=== PATIENT | female | born 1955 | race Asian ===

== ENCOUNTER → 2016-09-29 | Outpatient (CLI) | payer OTHER | END | disposition home or self-care (01) | LOC: RADPV 10:14 | PROVIDERS: ATTEND Family Medicine | DX: M47.892 Other spondylosis, cervical region (principal); M12.88 Other specific arthropathies, not elsewhere classified, other specified site | CPT/HCPCS: 72040 ==

== ENCOUNTER 2017-07-05 16:59 | Emergency (ER) | payer OTHER ==
[~2017-07-05] VITALS: Ht 157.5 cm; Wt 56.8 kg
[2017-07-05] MEDS ORDERED: METH2.5 PO (17:04)
[2017-07-05] MEDS ORDERED: METF500T4 PO (17:04)
[2017-07-05] MEDS ORDERED: GLIP5 PO (17:04)
[2017-07-05] MEDS ORDERED: ATOR10TA84 PO (17:04)
[2017-07-05 18:45] VITALS: BP 139/70
[2017-07-05] MEDS ORDERED: DiphenhydrAMINE HCL 25 MG CAPSULE PO ONE (19:15)
[2017-07-05] MEDS ORDERED: DEXAMETHASONE SOD PHOS 4 MG/ML 5 ML VIAL IM ONE (19:15)
== END 2017-07-05 19:45 | disposition home or self-care (01) ==
LOC: EMS 17:00
DX: L23.9 Allergic contact dermatitis, unspecified cause (principal); E11.9 Type 2 diabetes mellitus without complications; E78.00 Pure hypercholesterolemia, unspecified; M06.9 Rheumatoid arthritis, unspecified; Z85.3 Personal history of malignant neoplasm of breast
CPT/HCPCS: 82962; 96372; 99283; J1100

== ENCOUNTER → 2018-09-28 | Outpatient (CLI) | payer MEDICARE, OTHER ==
[~2018-09-28] MED LIST: ATOR10TA84 PO; GLIP5 PO; METF-960 PO; METH2.5 PO
== END | disposition home or self-care (01) ==
LOC: RADPV 12:27
PROVIDERS: ATTEND Family Medicine
DX: J18.9 Pneumonia, unspecified organism (principal)

== ENCOUNTER → 2019-05-04 | Outpatient (CLI) | payer MEDICARE, OTHER | END | disposition home or self-care (01) | LOC: RADPV 10:44 | PROVIDERS: ATTEND Internal Medicine Nephrology | DX: E11.22 Type 2 diabetes mellitus with diabetic chronic kidney disease (principal); N18.9 Chronic kidney disease, unspecified; R80.9 Proteinuria, unspecified | CPT/HCPCS: 76770 ==

== ENCOUNTER → 2022-06-17 | Outpatient (CLI) | payer MEDICARE, OTHER ==
[~2022-06-17] VITALS: Ht 157.5 cm; Wt 62.0 kg
[~2022-06-17] MED LIST changes: +ATOR10TA PO; -ATOR10TA84 PO; +DULA0.75 SQ; +EMPA10TA3 PO; -GLIP5 PO; +GLIP5TAB12 PO; +INSLAN SQ; +LOSA-382 PO; +METF-1211 PO; -METF-960 PO
[2022-06-17 14:28] VITALS: BP 143/71
== END | disposition home or self-care (01) ==
LOC: SRCNTR 13:45
PROVIDERS: ATTEND Internal Medicine
DX: R07.89 Other chest pain (principal); E11.9 Type 2 diabetes mellitus without complications; E78.5 Hyperlipidemia, unspecified
CPT/HCPCS: G0463

== ENCOUNTER → 2022-06-18 | Outpatient (CLI) | payer MEDICARE, OTHER | END | disposition home or self-care (01) | LOC: RADPV 09:16 | PROVIDERS: ATTEND Internal Medicine | DX: I08.1 Rheumatic disorders of both mitral and tricuspid valves (principal); R07.9 Chest pain, unspecified | CPT/HCPCS: 93306 ==

== ENCOUNTER → 2022-06-24 | Outpatient (CLI) | payer MEDICARE, OTHER ==
[~2022-06-24] VITALS: Ht 157.5 cm; Wt 62.0 kg
[~2022-06-24] MED LIST changes: -GLIP5TAB12 PO; -METF-1211 PO; -METH2.5 PO; +NITR0.3T12 SL
[2022-06-24 15:06] VITALS: BP 137/65
== END | disposition home or self-care (01) ==
LOC: SRCNTR 14:40
PROVIDERS: ATTEND Internal Medicine
DX: Z09 Encounter for follow-up examination after completed treatment for conditions other than malignant neoplasm (principal); I20.8 Other forms of angina pectoris; E11.9 Type 2 diabetes mellitus without complications; E78.5 Hyperlipidemia, unspecified
CPT/HCPCS: G0463

== ENCOUNTER → 2022-06-26 | Outpatient (CLI) | payer MEDICARE, OTHER ==
[~2022-06-26] MED LIST changes: +PERFLUTREN PROTEIN-A MICROSPHERES 0.22 MG/ML 3 ML VIAL IVP ONE
[2022-06-26 16:36] VITALS: BP 127/69
[2022-06-26 16:41] VITALS: BP 121/49
== END | disposition home or self-care (01) ==
LOC: CARDMN 08:24
PROVIDERS: ATTEND Internal Medicine
DX: R93.1 Abnormal findings on diagnostic imaging of heart and coronary circulation (principal); R07.9 Chest pain, unspecified
CPT/HCPCS: 93350; Q9967

== ENCOUNTER → 2022-07-22 | Outpatient (CLI) | payer MEDICARE, OTHER ==
[~2022-07-22] MED LIST changes: -PERFLUTREN PROTEIN-A MICROSPHERES 0.22 MG/ML 3 ML VIAL IVP ONE
[2022-07-22 10:57] LABS: COVID AG,FIA SOURCE NASAL SWAB
[2022-07-22 11:46] LABS: BASOPHILS % (AUTO) 0.4 % (0.0-2.0); EOSINOPHILS % (AUTO) 2.4 % (1.0-6.0); HEMATOCRIT 38.7 % (36-46); HEMOGLOBIN 12.3 g/dL (12.0-16.0); LYMPHOCYTES # (AUTO) 2.7 K/uL (1.0-4.8); LYMPHOCYTES % (AUTO) 43.8 % (22.0-44.0); MEAN CORPUSCULAR HEMOGLOBIN 27.2 pg (26.0-34.0); MEAN CORPUSCULAR HGB CONC 31.9 G/dL (31.0-37.0); MEAN CORPUSCULAR VOLUME 85 fL (80-100); MONOCYTES # (AUTO) 0.5 K/uL (0.1-1.0); MONOCYTES % (AUTO) 8.3 % (2.0-9.0); NEUTROPHILS # (AUTO) 2.8 K/uL (1.8-7.7); NEUTROPHILS % (AUTO) 45.1 % (40.0-70.0); PLATELET COUNT (AUTO) 160 K/uL (150-450); RED BLOOD CELL COUNT(AUTO) 4.54 MIL/uL (4.00-5.20); RED CELL DISTRIBUTION WIDTH 13.3 % (11.5-14.5)
[2022-07-22 11:55] LABS: CALCIUM, TOTAL 9.1 mg/dL (8.8-10.5); CREATININE 1.1 mg/dL (0.60-1.30); POTASSIUM 4.7 mmol/L (3.5-5.1)
[2022-07-22 12:00] LABS: BILIRUBIN,TOTAL 0.4 mg/dL (0.1-1.0); INR 0.9 (0.9-1.1); TOTAL PROTEIN, SERUM 8.8 g/dL (6.4-8.2)
== END | disposition still patient (30) ==
LOC: LABMN 10:15 → SDS 10:16 → EDSTATUS 07-23 09:00
PROVIDERS: ATTEND Internal Medicine
DX: R07.89 Other chest pain (principal); Z20.822 Contact with and (suspected) exposure to COVID-19; Z53.8 Procedure and treatment not carried out for other reasons
CPT/HCPCS: 87426; 80053; 85025; 85610; 85730; 36415; C9803

== ENCOUNTER → 2022-11-04 | Outpatient (CLI) | payer MEDICARE, OTHER ==
[~2022-11-04] VITALS: Ht 157.5 cm; Wt 59.8 kg
[~2022-11-04] MED LIST changes: +ROSU20TA73 PO; +UPAD15TA PO
[2022-11-04 14:48] VITALS: BP 113/54
== END | disposition home or self-care (01) ==
LOC: SRCNTR 14:37
PROVIDERS: ATTEND Internal Medicine
DX: Z09 Encounter for follow-up examination after completed treatment for conditions other than malignant neoplasm (principal); E11.9 Type 2 diabetes mellitus without complications; E78.5 Hyperlipidemia, unspecified; M06.9 Rheumatoid arthritis, unspecified; I20.8 Other forms of angina pectoris
CPT/HCPCS: G0463; Z7500

== ENCOUNTER → 2022-12-02 | Outpatient (CLI) | payer MEDICARE, OTHER ==
[~2022-12-02] MED LIST changes: +ASPI81TA87 PO; -ATOR10TA PO; +CARV3 PO; -LOSA-382 PO; +TICA90TA PO
== END | disposition home or self-care (01) ==
LOC: SRCNTR 14:49
PROVIDERS: ATTEND Internal Medicine
DX: I25.10 Atherosclerotic heart disease of native coronary artery without angina pectoris (principal); I10 Essential (primary) hypertension; E11.9 Type 2 diabetes mellitus without complications; M19.90 Unspecified osteoarthritis, unspecified site; Z85.3 Personal history of malignant neoplasm of breast
CPT/HCPCS: Q3014

== ENCOUNTER → 2023-04-15 | Outpatient (CLI) | payer MEDICARE, OTHER | END | disposition home or self-care (01) | LOC: RADPV 09:22 | PROVIDERS: ATTEND Internal Medicine | DX: I08.1 Rheumatic disorders of both mitral and tricuspid valves (principal); I25.10 Atherosclerotic heart disease of native coronary artery without angina pectoris | CPT/HCPCS: 93306 ==

== ENCOUNTER → 2023-04-21 | Outpatient (CLI) | payer MEDICARE, OTHER | END | disposition home or self-care (01) | LOC: SRCNTR 11:04 | PROVIDERS: ATTEND Internal Medicine | DX: I25.10 Atherosclerotic heart disease of native coronary artery without angina pectoris (principal); I10 Essential (primary) hypertension; E11.9 Type 2 diabetes mellitus without complications; M19.90 Unspecified osteoarthritis, unspecified site; Z95.5 Presence of coronary angioplasty implant and graft; Z85.3 Personal history of malignant neoplasm of breast; Z92.3 Personal history of irradiation | CPT/HCPCS: Q3014 ==

== ENCOUNTER → 2023-09-29 | Outpatient (CLI) | payer MEDICARE, OTHER | END | disposition home or self-care (01) | LOC: SRCNTR 13:30 | PROVIDERS: ATTEND Internal Medicine | DX: I25.10 Atherosclerotic heart disease of native coronary artery without angina pectoris (principal); I10 Essential (primary) hypertension; E11.9 Type 2 diabetes mellitus without complications; M19.90 Unspecified osteoarthritis, unspecified site; Z95.5 Presence of coronary angioplasty implant and graft; Z85.3 Personal history of malignant neoplasm of breast; Z92.3 Personal history of irradiation; Z90.10 Acquired absence of unspecified breast and nipple | CPT/HCPCS: Q3014 ==

== ENCOUNTER → 2023-12-22 | Outpatient (CLI) | payer MEDICARE, OTHER ==
[~2023-12-22] MED LIST changes: +LOSA-382 PO
[2023-12-22 14:28] VITALS: BP 127/73; PULSE 71; RESP 13; TEMP 98; O2SAT 99
== END | disposition home or self-care (01) ==
LOC: SRCNTR 14:11
PROVIDERS: ATTEND Internal Medicine
DX: I25.10 Atherosclerotic heart disease of native coronary artery without angina pectoris (principal); I08.1 Rheumatic disorders of both mitral and tricuspid valves; I11.9 Hypertensive heart disease without heart failure; E11.9 Type 2 diabetes mellitus without complications; M19.90 Unspecified osteoarthritis, unspecified site; Z85.3 Personal history of malignant neoplasm of breast; Z79.82 Long term (current) use of aspirin; Z79.899 Other long term (current) drug therapy
CPT/HCPCS: G0463; Z7500